=== PATIENT | male | born 1980 | race Hispanic/Latino ===

== ENCOUNTER 2017-08-30 14:24 | Emergency (ER) | payer MEDICARE ==
[2017-08-30 15:35] LABS: RAPID GROUP A STREP NEGATIVE (NEGATIVE)
== END 2017-08-30 15:54 | disposition home or self-care (01) ==
LOC: EDH 14:24
DX: J09.X2 Influenza due to identified novel influenza A virus with other respiratory manifestations (principal); R50.81 Fever presenting with conditions classified elsewhere
CPT/HCPCS: 87804; 87880

== ENCOUNTER 2019-08-12 17:21 | Emergency (ER) | payer MEDICARE | END 2019-08-12 18:48 | disposition home or self-care (01) | LOC: EDH 17:21 | DX: Z04.1 Encounter for examination and observation following transport accident (principal); F84.0 Autistic disorder; G80.9 Cerebral palsy, unspecified; V89.2XXA Person injured in unspecified motor-vehicle accident, traffic, initial encounter; Y93.89 Activity, other specified; Y92.488 Other paved roadways as the place of occurrence of the external cause; Y99.8 Other external cause status | CPT/HCPCS: 99281 ==